=== PATIENT | male | born 2005 | race Caucasian/White ===

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

== ENCOUNTER 2025-01-16 13:03 | Outpatient (AMB) | payer OTHER, SELFPAY ==
--- OUTSIDE RECORDS SUMMARY | 2025-01-11 22:59 | XMS_ITS | Continuity of Care Document ---
Author Organization [facility] Address [address] [place] [address]- Care Team Providers Care Biomass Technician Name Role Phone Not on Staff, PCP Primary Care Physician Unavail able Encounter [facility] Date(s): 12/12/24 - 01/11/25 [facility] [address] [place] [id number] Attending Physician: Deanna Quiles Admitting Physician: AdmDeanna kay Referring Physician: Admtr ArThad Encounter Type: Triage Allergies, Adverse Reactions, Alerts No Known Allergies Immunizations Given and Recorded Vaccine Date Status Refusal Reason influenza virus vaccine, inactivated 04/26/24 Give n influenza virus vaccine, inactivated 01/28/22 Jeffery rded influenza virus vaccine, inactivated 12/24/20 Jeffery rded influenza virus vaccine, inactivated 03/12/20 Jeffery rded influenza virus vaccine, inactivated 03/24/18 Jeffery rded influenza virus vaccine, inactivated 05/13/16 Jeffery rded influenza virus vaccine, inactivated 12/07/14 Jeffery rded Meningococcal Conjugate Vaccine 12/24/20 Recorded Meningococcal Conjugate Vaccine 05/13/16 Recorded Human Papillomavirus Vaccine 05/13/16 Recorded tetanus/diphtheria/pertussis, acel(Tdap) 05/13/16 Recorded Medications clonazePAM 1 mg oral tablet, disintegrating 1 tablet = 1 mg, By Mouth, Once, PRN Seizure Activity, # 5 tablet, 5 Refills, Soft Stop, 09/18/24 1:49:00 PM EDT, [facility], Partial fill upon patient request if the prescription is for a schedule II opioid drug., 165, cm, 09/18/24 12:32:00 EDT, Height, 64.2, kg, 09/15/24 18:00:00 EDT,Dry Weight Start Date: 09/18/24 Status: Ordered Medication Dispense Status: Completed Quantity: 5.0 Unit: tablet Total Allowed Fills: 6 Fills Dispensed: 0 levETIRAcetam 1000 mg oral tablet 1 tablet = 1,000 mg, By Mouth, 2 times a day, # 60 tablet, 6 Refills, Maintenance, 01/01/25 10:06:00 AM EDT, Tablet, [facility]/pharmacy #[id number], Partial fill upon patient request if the prescription is for aschedule II opioid drug., 170, cm, 11/08/24 17:01:00 EDT, Height, 64.2, kg, 09/15/24 18:00:00 EDT, Dry Weight Start Date: 01/01/25 Stop Date: 07/30/25 Status: Ordered Medication Dispense Status: Completed Quantity: 60.0 Unit: tablet Total Allowed Fills: 7 Fills Dispensed: 0 pantoprazole 40 mg oral delayed release tablet = 40 mg, By Mouth, 2 times a day, # 60 tablet, 0 Refills, Maintenance, 09/18/24 1:50:00 PM EDT, EC Tablet, 165, cm, 09/18/24 12:32:00 EDT, Height, 64.2, kg, 09/15/24 18:00:00 EDT, Dry Weight Start Date: 09/18/24 Status: Ordered Medication Dispense Status: Completed Quantity: 60.0 Unit: tablet Total Allowed Fills: 1 Fills Dispensed: 0 Problem List Condition Confirmation Course Effective Dates Status Health St atus Informant ADHD Confirmed Active Easy bruising Confirmed Active Social History Social History Type Response Smoking Status Never (less than 100 in lifetime); Other: Reports smoking but not tobacco; entered on: 09/21/24 Sex Sex Representation Male (finding) Patient Care team information Care Team Personnel Name: Iwona Collins RN Position: Job RN Member Role: Primary Care Nurse Name: Juan Antonio Hartman RN Position: CATHYS RN Member Role: Primary Care Nurse Name: Yannick Doss MD Position: Job Renal MD Member Role: Lifetime Consulting Physician Address: [address] [place] [address] [address] [facility] [place], [place] [id number] Telecom: Name: Not on Staff, PCP Position: S Physician (General Medicine) Member Role: PCP Care Team Related Persons Name: CLEO MYERS Name: SONAL KAMARA Name: BENITA TOMAS Insurance Providers Guarantor name: MARGARET Health Plan Information #: 1 Payer: [employer] Payer Identifier: MARGARET Member Number: [id number] Group Number: [id number] Subscriber Identifier: MARGARET Relationship to Subscriber: self Coverage Type: NA Coverage Verification Date: NA Telecom: Address:
--- OUTSIDE RECORDS SUMMARY | 2025-01-11 22:59 | XMS_ITS | Continuity of Care Document ---
Author Organization [facility] Address [address] [place] [address]- Care Team Providers Care Rotary Furnace Operator Name Role Phone Not on Staff, PCP Primary Care Physician Unavail able Encounter [facility] Date(s): 09/18/24 - 01/11/[address] [address] Attending Physician: Valdez Kilpatrick MD Admitting Physician: Valdez Kilpatrick MD Encounter Type: Pre-OutPatient One Time Allergies, Adverse Reactions, Alerts No Known Allergies [...] Refills, Soft Stop, 09/18/24 1:49:00 PM EDT, [facility], Partial fill upon patient request if [...] Refills, Maintenance, 01/01/25 10:06:00 AM EDT, Tablet, [facility]/pharmacy #[id number], Partial fill upon patient request if [...] MD Member Role: Lifetime Consulting Physician Address: [address] [place] [address] [address] [facility] [address] Telecom: Name: Not on Staff, PCP Position: S Physician (General Medicine) Member Role: PCP Care Team Related Persons Name: CLEO MYERS Name: SONAL KAMARA Name: BENITA TOMAS Insurance Providers Guarantor name: MARGARET Health Plan Information #: 1 Payer: [employer] Payer Identifier: MARGARET Member Number: [id number] Group Number: [id number] Subscriber Identifier: MARGARET Relationship to Subscriber: self Coverage Type: NA Coverage Verification Date: NA Telecom: Address:
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
[2025-01-16 13:06] VITALS: BP 98/60; PULSE 91; RESP 18; TEMP 36; O2SAT 96; BMI 21.4
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
--- OUTSIDE RECORDS SUMMARY | 2025-01-16 15:51 | XMS_ITS | Encounter Summary ---
Author Organization [facility] Address [address] [place] [address] Phone Care Team Providers Care Data Analyst Report Writer Name Role Phone Mitch Borden MD Primary Care Provider [phone] Encounter Details Date Type Department Care Team (Late st Contact Info) Description 06/09/2016 Documentation [facility] [address] [place] [address] Family Medicine, Physician [address] [place], [place] [id number] Social History Tobacco Use Types Packs/Day Years Used Date Smoking Tobacco: Never Assessed Sex and Gender Information Value Date Recorded Sex Assigned at Male 10/18/2019 4:16 PM EDT Legal Sex Male 4:57 PM EDT Gender Identity Male 10/18/2019 4:16 PM EDT Sexual Orientation Straight 10/18/2019 4: 16 PM EDT documented as of this encounter Plan of Treatment Not on file documented as of this encounter Visit Diagnoses Not on filedocumented in this encounter Care Teams Data Analyst Report Writer Relationship Specialty Start Date End Date Mitch Borden MD [address] [place] [address] [place] [address] PCP - General Pediatrics 03/20/24 06/06/24 documented as of this encounter
--- OUTSIDE RECORDS SUMMARY | 2025-01-16 15:51 | XMS_ITS | Encounter Summary ---
Author Organization [facility] Address [address] [place] [address] Phone Care Team Providers Care Ambulance Driver Name Role Phone Mitch Borden MD Primary Care Provider [phone] Encounter Details Date Type Department Care Team (Late st Contact Info) Description 02/11/2012 Documentation [facility] [address] [place] [address] Family Medicine, Physician [address] [place], [place] [phone] Social History Tobacco Use Types Packs/Day Years [...] on filedocumented in this encounter Care Teams Ambulance Driver Relationship Specialty Start Date End Date Mitch Borden MD [address] [place] [address] [place] [address] PCP - General Pediatrics 03/20/24 06/06/24 documented as of this encounter
--- OUTSIDE RECORDS SUMMARY | 2025-01-16 15:51 | XMS_ITS | Encounter Summary ---
Author Organization [facility] Address [address] [place] [address] Phone Care Team Providers Care Histology Specialist Name Role Phone Mitch Borden MD Primary Care Provider [phone] Encounter Details Date Type Department Care Team (Late st Contact Info) Description 10/28/2016 Conversion Encounter [facility] [place] [address] [place] [address] Social History Tobacco Use Types Packs/Day Years [...] on filedocumented in this encounter Care Teams Histology Specialist Relationship Specialty Start Date End Date Mitch Borden MD [address] [place] [address] PCP - General Pediatrics 03/20/24 06/06/24 documented as of this encounter
--- OUTSIDE RECORDS SUMMARY | 2025-01-16 15:51 | XMS_ITS | Encounter Summary ---
Author Organization [facility] Address [address] [place] [address] Phone Care Team Providers Care Decorating Equipment Setter Name Role Phone Mitch Borden MD Primary Care Provider [phone] Encounter Details Date Type Department Care Team (Late st Contact Info) Description 08/08/2014 Documentation [facility] [address] [place] [address] Family Medicine, Physician [address] [place], [place] [phone] Social History Tobacco Use Types Packs/Day Years [...] on filedocumented in this encounter Care Teams Decorating Equipment Setter Relationship Specialty Start Date End Date Mitch Borden MD [address] [place] [address] [place] [address] PCP - General Pediatrics 03/20/24 06/06/24 documented as of this encounter
--- OUTSIDE RECORDS SUMMARY | 2025-01-16 15:51 | XMS_ITS | Encounter Summary ---
Author Organization [facility] Address [address] [place] [address] Phone Care Team Providers Care Education Teacher Name Role Phone Mitch Borden MD Primary Care Provider [phone] Encounter Details Date Type Department Care Team (Late st Contact Info) Description 06/23/2009 Documentation [facility] [address] [place] [address] Family Medicine, Physician [address] [place], [place] [phone] Social History Tobacco Use Types Packs/Day Years [...] on filedocumented in this encounter Care Teams Education Teacher Relationship Specialty Start Date End Date Mitch Borden MD [address] [place] [address] [place] [address] PCP - General Pediatrics 03/20/24 06/06/24 documented as of this encounter
== END 2025-01-16 14:27 | disposition home or self-care (01) ==
LOC: HO.HMCH 13:04
PROVIDERS: PCP Pediatrics
DX: Z23 Encounter for immunization (principal)

== ENCOUNTER → 2025-01-16 13:03 | Outpatient (BNVA) | payer OTHER, SELFPAY | PROVIDERS: PCP Pediatrics | DX: R56.9 Unspecified convulsions (principal); Z23 Encounter for immunization | CPT/HCPCS: 90471; 90472; 90656; 90715; 96127; 99202 ==

== ENCOUNTER 2025-02-04 13:19 | Outpatient (AMB) | payer OTHER, SELFPAY ==
--- NOTE | 2025-02-04 13:47 | MHC.PC.OV ---
Vital Signs 02/04/25 13:48 Height 5 ft 7 in Weight 142 lb 6 oz BMI 22.3 BP 104/58 L Blood Pressure Location Lt brachial Position Sitting Respiration 18 Pulse 86 Pulse Source Pulse Oximeter Temp 97.8 F Temp Source Oral Pulse Oximetry (%) 97 Oxygen Delivery Method Room Air Intake Visit Reasons: follow up seziures Grief Counsellor Required: No Accompanied by: Allergies No Known Allergies Allergy (Verified 02/04/25 14:36) Medication List - Last Reconciled 02/04/25 by VIRGINIA Flores levetiracetam (Keppra) 1,500 mg PO BID Tobacco use date assessed: 02/04/25 Dental Screening Dental Screen Date: 02/04/25 Did you have a dental visit in the last 12 months?: Yes Did you have a dental problem in the last 6 months where you did not have access to dental care?: No Was dental information given to patient?: Patient has dentist HPI follow up seziures HPI Details The patient is a 19 year old individual presenting for follow-up on seizure management. The patient has a history of seizures with increasing frequency; seizures occurred in April, September, October, December, and most recently in January. Prior to the most recent seizure, the patient reported feeling unwell, vomited, and laid down. The patient reports experiencing an aura or specific feelings before a seizure occurs. The patient was not started on medication after the first seizure but was prescribed medication after the third seizure. The patient's Keppra dosage was 750 mg, which was increased to 1,000 mg in October and increased again after the seizure in January. During a recent hospitalization for a seizure, the patient had blood work and a cardiac evaluation, though it is unknown if a Keppra level was checked. The patient was prescribed clonazepam 1 mg to be taken at the onset of pre-seizure symptoms to prevent a full seizure, by the ER doctor. The patient reports smoking two to three marijuana blunts per day, a reduction from a prior history of smoking five to six blunts daily. The patient does not drink alcohol. Regarding hydration, the patient acknowledges needing to drink more water. The patient has a history of low-normal blood pressure, with a reading of 98/60 last year. [facility] Medical History Seizure Family History Unknown Seizure Maternal Grandmother Diabetes mellitus Maternal Uncle Diabetes mellitus Learning disability Mother Learning disability Maternal Aunt Leukemia Social History Alcohol intake: never Patient Tobacco Use Status: Never used Tobacco e-Cigarette/Vaping Use: Never Used Substance Use Type: Marijuana Current occupational status: unemployed Cognitive needs: No Hearing needs: No Vision needs: No Questionnaire PHQ-9 Over the last 2 weeks, how often have you been bothered by any of the following problems? 1. Little interest or pleasure in doing things: not at all 2. Feeling down, depressed, or hopeless: not at all 3. Trouble falling or staying asleep, or sleeping too much: not at all 4. Feeling tired or having little energy: not at all 5. Poor appetite or overeating: not at all 6. Feeling bad about yourself - or that you are a failure or have let yourself or your family down: not at all 7. Trouble concentrating on things, such as reading the newspaper or watching television: not at all 8. Moving or speaking so slowly that other people could have noticed. Or the opposite - being so fidgety or restless that you have been moving around a lot more than usual: not at all 9. Thoughts that you would be better off or of hurting yourself in some way: not at all Total score: 0 Source: Developed by Drs. Coy Chavez, Flora Bowers, Caio Gaston and colleagues, with an educational melissa from [employer]. Thrive Questionnaire Date Thrive assessed: 02/04/25 I am a: Patient What is your living situation today?: I have a steady place to live Within the past 12 months, did the food you bought not last and you didn't have the money to get more?: Never true Within the past 12 months, did you worry whether your food would run out before you got money to buy more?: Never true Do you have trouble paying for medicines?: No Do you have trouble getting transportation to medical appointments?: No Do you have trouble paying your heating and electricity bill?: No Do you have trouble taking care of your child, family member or friend?: No Do you have trouble with day-to-day activities such as bathing, preparing meals, shopping, managing finances, etc.?: No Are you currently unemployed and looking for a job?: No Are you interested in more education?: No Please select the resources that you would like help with: None Currently or been in a relationship where the following occur: No concerns reported THRIVE Score: 0 AUDIT C Alcohol Use Questionnaire (AUDIT-C) 1. How often do you have a drink containing alcohol?: Never 2. How many drinks containing alcohol do you have on a typical day when you are drinking?: 1 or 2 3. How often do you have six or more drinks on one occasion?: Never Total Score: 0 RYDER-7 AMB Questionnaire RYDER-7 Date RYDER - 7 assessed: 02/04/25 Feeling nervous, anxious, or on edge: 0 = Not at all Not being able to stop or control worryin = Not at all Worrying too much about different things: 0 = Not at all Trouble relaxin = Not at all Being so restless that it is hard to sit still: 0 = Not at all Becoming easily annoyed or irritable: 0 = Not at all Feeling afraid as if something awful might happen: 0 = Not at all Total RYDER-7 score (0-4 normal; 5-9 mild; 10-14 moderate; 15-21 severe): 0 Source: Developed by Drs. Coy Chavez, Flora Bowers, Caio Gaston and colleagues, with an educational melissa from [employer]. Review of Systems Const Denies headache(s) Eyes Denies loss of vision ENT Denies vertigo, Denies dizziness, Denies headache(s) and Denies sore throat Card Denies chest pain, Denies leg edema and Denies lightheadedness Resp Denies cough, Denies hemoptysis and Denies wheezing GI Denies abdominal pain, Denies melena, Denies constipation, Denies diarrhea and Denies vomiting Denies dysuria, Denies urinary frequency and Denies urinary urgency Musc Denies arthralgias, Denies joint swelling, Denies numbness and Denies tingling Neuro Denies Abnormal speech present, Denies behavioral changes, Denies vertigo, Denies dizziness, Denies headache(s), Denies loss of vision, Denies memory loss, Denies numbness, Reports seizure-like activity and Denies tingling Psych Denies anxiety, Denies behavioral changes, Denies depression, Denies memory loss and Denies panic attacks Ronan/Lymph Denies easy bleeding and Denies easy bruising Aller/Immun Denies wheezing Physical exam (Primary Care) Vital Signs: Last Vital Signs Temp 97.8 F 02/04/25 13:48 Pulse 86 02/04/25 13:48 Resp 18 02/04/25 13:48 BP 104/58 L 02/04/25 13:48 Pulse Ox 97 02/04/25 13:48 Oxygen Delivery Method Room Air 02/04/25 13:48 BMI result Body Mass Index 22.3 Tobacco/Smoking Status: Tobacco use Status Tobacco use date assessed 02/04/25 02/04/25 13:54 Patient Tobacco Use Status Never used Tobacco 02/04/25 13:54 e-Cigarette/Vaping Use Never Used 02/04/25 13:54 PHQ-9: PHQ-9 Score PHQ-9: Total score 0 02/05/25 14:57 Thrive Assessment: Date of Thrive Assessment Date Thrive assessed 02/04/25 02/04/25 13:54 Currently or been in a relationship where the following occur: No concerns reported Const General: healthy appearing, no acute distress, alert and awake Nutritional Appearance: well nourished Orientation/consciousness: oriented to person, oriented to place and oriented to time HENMT Ears: TM's normal bilaterally General nose exam: Normal nasal mucous membranes and turbinates present Eyes Conjunctivae: conjunctivae normal Sclerae: sclerae normal Pupils: Equal, round and reactive pupils present Neck Neck: Yes no lymphadenopathy and Yes no JVD Thyroid: Thyroid normal Carotids: no bruits Resp Effort & Inspection: normal respiratory effort and not tachypneic Auscultation: no crackles, no rales, no rhonchi and no wheezes Cardio Rate: regular rate Rhythm: regular rhythm Heart sounds: no murmurs and normal S1 and S2 GI Palpation (GI): Soft to palpation, nontender, no hepatomegaly and no splenomegaly Auscultation: normal bowel sounds Skin General skin exam: no rashes or lesions noted and dry skin Neuro General: oriented to person, oriented to place and oriented to time Cranial nerves: Yes CN's II-XII intact bilaterally and Yes Equal, round and reactive pupils present Speech: No Abnormal speech present Gait exam (Neuro): Normal gait present Motor exam (neuro): no tremor noted Extrem Right upper extremity: full ROM Left upper extremity: full ROM Right lower extremity: full ROM; no edema Left lower extremity: full ROM; no edema Psych Mental Status: mental status grossly normal Speech and movement: Normal speech and movement present Affect: normal affect Attitude: cooperative Thought process: Normal thought process present Coding Level of Care Code Est Pt Level 3 (80144) Diagnoses Seizure R56.9 Marijuana use F12.90 Time Spent (min) 29 Assessment & Plan Assessment & Plan (1) Seizure: Code(s): R56.9 - Unspecified convulsions Category: Medical Plan: The patient presents with breakthrough seizures of increasing frequency despite titration of Keppra. Potential contributing factors include subtherapeutic Keppra levels, cannabis use, and inadequate hydration. The plan is to check a Keppra level to guide further medication management. The patient has been counseled to reduce marijuana use and increase water intake. The patient will continue to use clonazepam as needed for pre-seizure symptoms. The patient will follow up with neurology on March 18 and return to this clinic on March 11. (2) Marijuana use: Code(s): F12.90 - Cannabis use, unspecified, uncomplicated Category: Social Hx Plan: The patient reports daily use of marijuana, which may be a contributing factor to the increased seizure frequency. The patient was counseled on the potential link and advised to be mindful of consumption and begin cutting back. Orders: Orders Levetiracetam Keppra 02/04/25 R56.9 - Unspecified convulsions
[2025-02-04 13:48] VITALS: BP 104/58; PULSE 86; RESP 18; TEMP 36.6; O2SAT 97; BMI 22.3
--- OUTSIDE RECORDS SUMMARY | 2025-02-04 17:58 | XMS_ITS | Encounter Summary ---
Author Organization [facility] Address [address] [place] [address] Phone Care Team Providers Care Training And Development Manager Name Role Phone Mitch Borden MD Primary Care Provider [phone] Encounter Details Date Type Department Care Team (Late st Contact Info) Description 10/28/2016 Conversion Encounter [facility] [place] [address] [place] [address] Social History Tobacco Use Types Packs/Day Years [...] on filedocumented in this encounter Care Teams Training And Development Manager Relationship Specialty Start Date End Date Mitch Borden MD [address] [place] [address] PCP - General Pediatrics 03/20/24 06/06/24 documented as of this encounter
--- OUTSIDE RECORDS SUMMARY | 2025-02-04 17:58 | XMS_ITS | Encounter Summary ---
Author Organization [facility] Address [address] [place] [address] Phone Care Team Providers Care Registered Nurse Cardiac Telemetry Name Role Phone Mitch Borden MD Primary Care Provider [phone] Encounter Details Date Type Department Care Team (Late st Contact Info) Description 08/08/2014 Documentation [facility] [address] [place] [address] Family Medicine, Physician [address] [place], [place] [address] Social History Tobacco Use Types Packs/Day Years [...] on filedocumented in this encounter Care Teams Registered Nurse Cardiac Telemetry Relationship Specialty Start Date End Date Mitch Borden MD [address] [place] [address] [place] [address] PCP - General Pediatrics 03/20/24 06/06/24 documented as of this encounter
--- OUTSIDE RECORDS SUMMARY | 2025-02-04 17:58 | XMS_ITS | Encounter Summary ---
Author Organization [facility] Address [address] [place] [address] Phone Care Team Providers Care Supervisor Continuous Weld Pipe Mill Name Role Phone Mitch Borden MD Primary Care Provider Encounter Details Date Type Department Care Team (Late st Contact Info) Description 02/11/2012 Documentation [facility] [address] [place] [address] Family Medicine, Physician [address] [place], [place] [phone] Social History Tobacco Use Types Packs/Day Years [...] on filedocumented in this encounter Care Teams Supervisor Continuous Weld Pipe Mill Relationship Specialty Start Date End Date Mitch Borden MD [address] [place] [address] [place] [address] PCP - General Pediatrics 03/20/24 06/06/24 documented as of this encounter
--- OUTSIDE RECORDS SUMMARY | 2025-02-04 17:58 | XMS_ITS | Encounter Summary ---
Author Organization [facility] Address [address] [place] [address] Phone Care Team Providers Care Intelligent Systems Engineer Name Role Phone Mitch Borden MD Primary Care Provider [phone] Encounter Details Date Type Department Care Team (Late st Contact Info) Description 06/09/2016 Documentation [facility] [address] [place] [address] Family Medicine, Physician [address] [place], [place] [id number] Social History Tobacco Use Types Packs/Day Years [...] on filedocumented in this encounter Care Teams Intelligent Systems Engineer Relationship Specialty Start Date End Date Mitch Borden MD [address] [place] [address] [place] [address] PCP - General Pediatrics 03/20/24 06/06/24 documented as of this encounter
--- OUTSIDE RECORDS SUMMARY | 2025-02-04 17:58 | XMS_ITS | Encounter Summary ---
Author Organization [facility] Address [address] [place] [address] Phone Care Team Providers Care Project Accountant Name Role Phone Mitch Borden MD Primary Care Provider [phone] Encounter Details Date Type Department Care Team (Late st Contact Info) Description 06/23/2009 Documentation [facility] [address] [place] [address] Family Medicine, Physician [address] [place], [place] [phone] Social History Tobacco Use Types Packs/Day Years [...] on filedocumented in this encounter Care Teams Project Accountant Relationship Specialty Start Date End Date Mitch Borden MD [address] [place] [address] [place] [address] PCP - General Pediatrics 03/20/24 06/06/24 documented as of this encounter
--- OUTSIDE RECORDS SUMMARY | 2025-02-04 17:58 | XMS_ITS | Clinical Summary ---
Author Organization [facility] Address [address] [place] [address] Phone Care Team Providers Care Automotive Glass Technician Name Role Phone Unavailable Primary Care Provider Unavailabl e Allergies No known active allergies Medications No known medications Active Problems Problem Noted Date Diagnosed Date COVID-19 vaccination declined 02/03/2021 Psychosocial stressors 08/07/2020 Overview (01/26/2021): 02/01-- here with Mom for preop PE for ganglion (11:30 am) - strong smell of marijuana in room, which I mentioned. 08/07/20 Haven Charlton police investigator at [facility] office- [phone] calling on an active 51 A (she stated the 51 A was filed on Gigi's 17 year old sister and her two minor children. But [facility] is mandated to investigate on all [...] (10/18/2019): Has therapist coming to home from [facility]. On on meds at present. Immunizations Immunization [...]
== END 2025-02-04 14:58 | disposition home or self-care (01) ==
LOC: HO.HMCH 13:20
DX: R56.9 Unspecified convulsions (principal); F12.90 Cannabis use, unspecified, uncomplicated

== ENCOUNTER → 2025-02-04 13:19 | Outpatient (BNVA) | payer OTHER, SELFPAY | DX: R56.9 Unspecified convulsions (principal); F12.90 Cannabis use, unspecified, uncomplicated; Z79.899 Other long term (current) drug therapy | CPT/HCPCS: 99212 ==

== ENCOUNTER 2025-03-01 11:23 | Outpatient (REF) | payer OTHER, SELFPAY ==
[2025-03-01 11:37] LABS: MANUAL DIFF FLAG NO
[2025-03-01 11:46] LABS: Hematocrit 45.1 % (42.0-52.0); Hemoglobin 15.2 g/dl (14.0-18.0); Imm Gran Abs Auto 0.02 X10*3/uL (0.00-0.03); Imm Gran Pct Auto 0.2 % (0.0-0.4); Lymphocytes Absolute Auto 2.2 X10*3/uL (1.2-4.9); Mean Corpuscular HGB Conc 33.7 g/dl (31.0-36.0); Mean Corpuscular Hemoglobin 30.1 pg (27.0-33.0); Mean Corpuscular Volume 89.3 fL (80.0-98.0); NRBC Abs Auto 0.000 X10*3/uL (0.0-0.012); NRBC Pct Auto 0.0 /100WBC (0.0-0.2); Platelet Count 214 X10*3/uL (160-400); Red Blood Count 5.05 X10*6/uL (4.60-5.80); White Blood Count 8.5 X10*3/uL (4.8-10.8)
[2025-03-01 12:21] LABS: Alanine Aminotransferase 26 U/L (0-40); Albumin Level 4.6 g/dL (3.5-5.0); Alkaline Phosphatase 74 U/L (39-117); Anion Gap 9 (12-20); Aspartate Amino Transferase 26 U/L (5-37); Blood Urea Nitrogen 9 mg/dL (9-16); Calcium 9.4 mg/dL (8.4-10.2); Carbon Dioxide 27 mmol/L (22-29); Chloride 107 mmol/L (96-108); Cholesterol 164 mg/dL (<200); Estimated Glomerular Filt Rate > 60; HDL Cholesterol 43 mg/dL (>40); Potassium 4.0 mmol/L (3.3-5.1); Sodium 139 mmol/L (135-145); Total Protein 6.6 g/dL (6.5-8.0); Triglycerides 82 mg/dL (<150)
--- OUTSIDE RECORDS SUMMARY | 2025-03-01 13:27 | XMS_ITS | Encounter Summary ---
Author Organization [facility] Address [address] [place] [address] Phone Care Team Providers Care Auto Body Mechanic Name Role Phone Mitch Borden MD Primary Care Provider [phone] Encounter Details Date Type Department Care Team (Late st Contact Info) Description 10/28/2016 Conversion Encounter [facility] [place] [address] [place] [address] Social History Tobacco Use Types Packs/Day Years [...] on filedocumented in this encounter Care Teams Auto Body Mechanic Relationship Specialty Start Date End Date Mitch Borden MD [address] [place] [address] PCP - General Pediatrics 03/20/24 06/06/24 documented as of this encounter
--- OUTSIDE RECORDS SUMMARY | 2025-03-01 13:27 | XMS_ITS | Encounter Summary ---
Author Organization [facility] Address [address] [place] [address] Phone Care Team Providers Care Teletype Technician Name Role Phone Mitch Borden MD Primary Care Provider [phone] Encounter Details Date Type Department Care Team (Late st Contact Info) Description 06/23/2009 Documentation [facility] [address] [place] [address] Family Medicine, Physician [address] [place], [place] [phone] Social History Tobacco Use Types Packs/Day Years [...] on filedocumented in this encounter Care Teams Teletype Technician Relationship Specialty Start Date End Date Mitch Borden MD [address] [place] [address] [place] [address] PCP - General Pediatrics 03/20/24 06/06/24 documented as of this encounter
--- OUTSIDE RECORDS SUMMARY | 2025-03-01 13:27 | XMS_ITS | Clinical Summary ---
Author Organization [facility] Address [address] [place] [address] Phone Care Team Providers Care Segregator Name Role Phone Unavailable Primary Care Provider Unavailabl e Allergies No known active allergies Medications No known medications Active Problems Problem Noted Date Diagnosed Date COVID-19 vaccination declined 02/03/2021 Psychosocial stressors 08/07/2020 Overview (01/26/2021): 02/01-- here with Mom for preop PE for ganglion (11:30 am) - strong smell of marijuana in room, which I mentioned. 08/07/20 Haven Charlton radio interference investigator at [facility] office- [phone] calling on an active 51 A (she stated the 51 A was filed on Gigi's 17 year old sister and her two minor children. But [facility] is mandated to investigate on all [...] (10/18/2019): Has therapist coming to home from [facility]. On on meds at present. Encounters Date Type Department Care Team Description 02/11/2025 Telephone [facility] [place] [address] [place] [address] Lu Feng MD medical records from Last 3 Months Immunizations Immunization Administration Dates Next Due DTaP [...]
--- OUTSIDE RECORDS SUMMARY | 2025-03-01 13:27 | XMS_ITS | Encounter Summary ---
Author Organization [facility] Address [address] [place] [address] Phone Care Team Providers Care Hog Cooler Name Role Phone Mitch Borden MD Primary Care Provider Encounter Details Date Type Department Care Team (Late st Contact Info) Description 06/09/2016 Documentation [facility] Family Medicine [address] [place] [address] Family Medicine, Physician [address] [place], [place] [phone] Social History Tobacco Use Types Packs/Day Years [...] on filedocumented in this encounter Care Teams Hog Cooler Relationship Specialty Start Date End Date Mithc Borden MD [address] [place] [address] [place] [address] PCP - General Pediatrics 03/20/24 06/06/24 documented as of this encounter
--- OUTSIDE RECORDS SUMMARY | 2025-03-01 13:27 | XMS_ITS | Encounter Summary ---
Author Organization [facility] Address [address] [place] [address] Phone Care Team Providers Care Asphalt Smoother Name Role Phone Mitch Borden MD Primary Care Provider [phone] Encounter Details Date Type Department Care Team (Late st Contact Info) Description 02/11/2012 Documentation [facility] [address] [place] [address] Family Medicine, Physician [address] [place], [place] [phone] Social History Tobacco Use Types Packs/Day Years [...] on filedocumented in this encounter Care Teams Asphalt Smoother Relationship Specialty Start Date End Date Mitch Borden MD [address] [place] [address] [place] [address] PCP - General Pediatrics 03/20/24 06/06/24 documented as of this encounter
--- OUTSIDE RECORDS SUMMARY | 2025-03-01 13:27 | XMS_ITS | Encounter Summary ---
Author Organization [facility] Address [address] [place] [address] Phone Care Team Providers Care Paper Cup Machine Operator Name Role Phone Mitch Borden MD Primary Care Provider [phone] Encounter Details Date Type Department Care Team (Late st Contact Info) Description 08/08/2014 Documentation [facility] [address] [place] [address] Family Medicine, Physician [address] [place], [place] [id number] Social History Tobacco Use Types Packs/Day Years [...] on filedocumented in this encounter Care Teams Paper Cup Machine Operator Relationship Specialty Start Date End Date Mitch Borden MD [address] [place] [address] [place] [address] PCP - General Pediatrics 03/20/24 06/06/24 documented as of this encounter
[2025-03-03 23:56] LABS: Levetiracetam Keppra 69.3 mcg/mL (10.0-40.0)
== END 2025-03-01 11:24 | disposition home or self-care (01) ==
LOC: HO.LAB 11:23
DX: Z00.00 Encounter for general adult medical examination without abnormal findings (principal); R56.9 Unspecified convulsions
CPT/HCPCS: 36415; 80053; 80061; 80177; 82306; 83036; 84443; 85025

== ENCOUNTER 2025-03-11 11:29 | Outpatient (AMB) | payer OTHER, SELFPAY ==
--- NOTE | 2025-03-11 11:39 | MHC.PC.OV ---
Vital Signs 03/11/25 11:41 Height 5 ft 7 in Weight 145 lb 8 oz BMI 22.8 BP 110/62 Blood Pressure Location Lt brachial Position Sitting Pulse 70 Pulse Source Pulse Oximeter Temp 97.3 F Temp Source Temporal Artery Scan Pulse Oximetry (%) 97 Oxygen Delivery Method Room Air Intake Visit Reasons: annual exam Intake Note: Patient is here today for a physical. Bioengineer Required: No Substation Operator Transforming: Not Required per policy Accompanied by: Self / Same As Patient Allergies No Known Allergies Allergy (Verified 03/12/25 08:12) Medication List - Last Reconciled 03/12/25 by VIRGINIA Flores cholecalciferol (vitamin D3) 50 mcg PO DAILY ibuprofen 800 mg PO Q8H PRN levetiracetam (Keppra) 1,500 mg (1.5 x 1,000 mg) PO BID 90 days Tobacco use date assessed: 03/11/25 Dental Screening Dental Screen Date: 02/04/25 HPI annual exam HPI Details Dentist: up to date Eye: not for awhile Snellen: Right: Left: Corrected vision:no STI screening: Colonoscopy:n/a Pap Smer:n/a PHQ-9: Flu: Up-to-date COVID: Up-to-date Tdap: Up-to-date Diet: Regular Exercise: That at the moment The patient is a 19 year old male presenting for a follow-up visit to review lab results, manage chronic conditions, and to obtain medical documentation for disability. 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 He takes 1500 mg of an unspecified medication for his seizures, and his medication level is being monitored. The patient also reports chronic right knee pain following a prior ACL tear. The pain is typically worse during the winter but has been particularly severe lately, sometimes causing him to want to curl up. A follow-up x-ray performed around [id number] was reportedly normal, and he has surgical hardware in place from a previous procedure. Recent blood work revealed a slightly elevated LDL cholesterol of 105 and low vitamin D. His diet includes fried foods, pork, red meat, egg yolks, and shellfish. He reports being sensitive to dairy products, including lactose-free milk. Health Maintenance - Cholesterol management: Recent LDL was 105. - The patient was counseled to reduce dietary intake of fried foods, pork, red meat, and egg yolks. - Vitamin D deficiency: Lab results indicated a low vitamin D level. - Vaccinations: A discussion was held regarding his immunization status for influenza and tetanus. - General screenings: The patient confirms he has had a dental and eye exam within the past year. - Hydration: The patient reports drinking two bottles of water a day and was encouraged to increase his fluid intake. 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 - Nutrition: His diet includes fried foods, pork, red meat, egg yolks, and shellfish. - He reports drinking approximately two bottles of water per day. Results - Labs: - LDL Cholesterol: 105. - Vitamin D: Low. - Anticonvulsant level: High. - Imaging: - Right Knee X-ray (c. [id number]): Reportedly normal on visual inspection. [facility] Medical History (Updated 03/12/25 @ 08:27 by VIRGINIA Flores) Seizure Surgical History History of dental surgery Family History Unknown Seizure Maternal Grandmother Diabetes mellitus Maternal Uncle Diabetes mellitus Learning disability Mother Learning disability Maternal Aunt Leukemia Social History Housing: Apartment Alcohol intake: never Patient Tobacco Use Status: Never used Tobacco e-Cigarette/Vaping Use: Never Used Second Hand Smoke Exposure: No Substance Use Type: Marijuana service: No Current occupational status: unemployed Cognitive needs: No Hearing needs: No Vision needs: No Questionnaire Thrive Questionnaire Date Thrive assessed: 02/02/25 I am a: Patient What is your living situation today?: I have a steady place to live Within the past 12 months, did the food you bought not last and you didn't have the money to get more?: Never true Within the past 12 months, did you worry whether your food would run out before you got money to buy more?: Never true Do you have trouble paying for medicines?: No Do you have trouble getting transportation to medical appointments?: No Do you have trouble paying your heating and electricity bill?: No Do you have trouble taking care of your child, family member or friend?: No Do you have trouble with day-to-day activities such as bathing, preparing meals, shopping, managing finances, etc.?: No Are you currently unemployed and looking for a job?: No Are you interested in more education?: No Currently or been in a relationship where the following occur: No concerns reported THRIVE Score: 0 RYDER-7 AMB Questionnaire RYDER-7 Date RYDER - 7 assessed: 02/04/25 Source: Developed by Drs. Coy Cahvez, Flora Bowers, Caio Gaston and colleagues, with an educational melissa from [employer]. Review of Systems Narrative Review of Systems - Neurological: Reports a history of seizures and headaches. - Musculoskeletal: Reports severe, worsening pain in the right knee, which is exacerbated by cold weather. - Gastrointestinal: Reports sensitivity to milk products. - Denies abdominal pain. - Cardiovascular: Denies chest pain. - Respiratory: Denies shortness of breath. Const Denies headache(s) Eyes Denies loss of vision ENT Denies vertigo, Denies dizziness, Denies headache(s) and Denies sore throat Card Denies chest pain, Denies leg edema and Denies lightheadedness Resp Denies cough, Denies hemoptysis and Denies wheezing GI Denies abdominal pain, Denies melena, Denies constipation, Denies diarrhea and Denies vomiting Denies dysuria, Denies urinary frequency and Denies urinary urgency Musc Reports arthralgias (Right knee), Denies joint swelling, Denies numbness and Denies tingling Neuro Denies Abnormal speech present, Denies behavioral changes, Denies vertigo, Denies dizziness, Denies headache(s), Denies loss of vision, Denies memory loss, Denies numbness, Reports seizure-like activity and Denies tingling Psych Denies anxiety, Denies behavioral changes, Denies depression, Denies memory loss and Denies panic attacks Ronan/Lymph Denies easy bleeding and Denies easy bruising Aller/Immun Denies wheezing Physical exam (Primary Care) Vital Signs: Last Vital Signs Temp 97.3 F 03/11/25 11:41 Pulse 70 03/11/25 11:41 BP 110/62 03/11/25 11:41 Pulse Ox 97 03/11/25 11:41 Oxygen Delivery Method Room Air 03/11/25 11:41 BMI result Body Mass Index 22.8 Tobacco/Smoking Status: Tobacco use Status Tobacco use date assessed 03/11/25 03/11/25 11:46 Patient Tobacco Use Status Never used Tobacco 03/11/25 11:46 e-Cigarette/Vaping Use Never Used 03/11/25 11:46 Thrive Assessment: Date of Thrive Assessment Date Thrive assessed 02/02/25 03/11/25 11:46 Currently or been in a relationship where the following occur: No concerns reported Narrative Physical Exam Const General: healthy appearing, no acute distress, alert and awake Nutritional Appearance: well nourished Orientation/consciousness: oriented to person, oriented to place and oriented to time HENMT Ears: TM's normal bilaterally General nose exam: Normal nasal mucous membranes and turbinates present Eyes Conjunctivae: conjunctivae normal Sclerae: sclerae normal Pupils: Equal, round and reactive pupils present Neck Neck: Yes no lymphadenopathy and Yes no JVD Thyroid: Thyroid normal Carotids: no bruits Resp Effort & Inspection: normal respiratory effort and not tachypneic Auscultation: no crackles, no rales, no rhonchi and no wheezes Cardio Rate: regular rate Rhythm: regular rhythm Heart sounds: no murmurs and normal S1 and S2 GI Palpation (GI): Soft to palpation, nontender, no hepatomegaly and no splenomegaly Auscultation: normal bowel sounds General: Yes no CVA tenderness Back/Spine/Pelvis Back: no CVA tenderness Skin General skin exam: no rashes or lesions noted and dry skin Neuro General: oriented to person, oriented to place and oriented to time Cranial nerves: Yes CN's II-XII intact bilaterally and Yes Equal, round and reactive pupils present Speech: No Abnormal speech present Gait exam (Neuro): Normal gait present Motor exam (neuro): no tremor noted Deep tendon reflexes (DTR's): Right triceps reflex intensity grade: 2+, Left triceps reflex intensity grade: 2+, Rt Biceps (C5, C6): 2+, Left biceps reflex intensity grade: 2+, Right brachioradialis reflex intensity grade: 2+, Left brachioradialis reflex intensity grade: 2+, Right patellar reflex intensity grade: 2+ and Left patellar reflex intensity grade: 2+ Extrem Right upper extremity: full ROM Left upper extremity: full ROM Right lower extremity: full ROM and knee Details: no tenderness and no swelling; no edema Left lower extremity: full ROM; no edema Psych Mental Status: mental status grossly normal Speech and movement: Normal speech and movement present Affect: normal affect Attitude: cooperative Thought process: Normal thought process present Results Reviewed Results Reviewed: Laboratory Tests 03/01/25 11:36 WBC 8.5 RBC 5.05 Hgb 15.2 Hct 45.1 MCV 89.3 MCH 30.1 MCHC 33.7 RDW 12.3 Plt Count 214 Sodium 139 Potassium 4.0 Chloride 107 Carbon Dioxide 27 Anion Gap 9 L BUN 9 Creatinine 0.98 Estim Creat Clear Calc Not Reportable Estimated GFR > 60 Fasting Glucose 92 Estimat Average Glucose 105 Hemoglobin A1c % 5.3 Calcium 9.4 Total Bilirubin 0.8 AST 26 ALT 26 Alkaline Phosphatase 74 Total Protein 6.6 Albumin 4.6 Triglycerides 82 Cholesterol 164 LDL Cholesterol, Calc 105 H HDL Cholesterol 43 25-OH Vitamin D Total 21.8 L TSH 0.82 Levetiracetam 69.3 H Coding Level of Care Code Est Pt Prev Care 18-39y([id number]) Diagnoses Annual physical exam Z00.00 Seizure R56.9 Marijuana use F12.90 Vitamin D deficiency E55.9 Chronic pain of right knee M25.561; G89.29 Chronicity: chronic Time Spent (min) 35 Assessment & Plan Assessment & Plan (1) Annual physical exam: Code(s): Z00.00 - Encounter for general adult medical examination without abnormal findings Category: Medical Plan: Preventative guidelines and recent labs reviewed with the patient (2) Seizure: Code(s): R56.9 - Unspecified convulsions Category: Medical Plan: The patient presents with breakthrough seizures of increasing frequency despite titration of Keppra. Potential contributing factors include subtherapeutic Keppra levels, cannabis use, and inadequate hydration. The plan is to check a Keppra level to guide further medication management. The patient has been counseled to reduce marijuana use and increase water intake. The patient will continue to use clonazepam as needed for pre-seizure symptoms. The patient will follow up with neurology on March 18. Patient in office today no recent seizures. Keppra levels slightly elevated. No changes, we will continue to monitor (3) Marijuana use: Code(s): F12.90 - Cannabis use, unspecified, uncomplicated Category: Social Hx Plan: The patient reports daily use of marijuana, which may be a contributing factor to the increased seizure frequency. The patient was counseled on the potential link and advised to be mindful of consumption and begin cutting back. (4) Vitamin D deficiency: Code(s): E55.9 - Vitamin D deficiency, unspecified Category: Medical Plan: Start vitamin D3 50 mcg daily (5) Right knee pain: Code(s): M25.561 - Pain in right knee Category: Medical Qualifiers: Chronicity: chronic Qualified Code(s): M25.561 - Pain in right knee; G89.29 - Other chronic pain Plan: The patient's worsening right knee pain is likely related to his prior ACL injury and surgical hardware. He has been prescribed ibuprofen 800 mg to be taken as needed for severe pain. He was counseled to take it with food and to use it sparingly to avoid potential kidney damage Plan Plan Patient was informed and verbally consented to the use of an ambient scribe for clinic note documentation during this visit. 1. Seizure Disorder The patient's seizures are managed with medication, and his anticonvulsant level is noted to be in the high-therapeutic range, which will be monitored to prevent seizure activity. A letter will be provided to support his application for medical disability. He is advised to follow up in three months for continued monitoring. 2. Chronic Right Knee Pain The patient's worsening right knee pain is likely related to his prior ACL injury and surgical hardware. He has been prescribed ibuprofen 800 mg to be taken as needed for severe pain. He was counseled to take it with food and to use it sparingly to avoid potential kidney damage. 3. Hypercholesterolemia The patient's LDL cholesterol is slightly elevated at 105. He was advised on dietary modifications, including decreasing the intake of fried foods, pork, red meat, and egg yolks. 4. Vitamin D Deficiency Based on recent lab results showing a low vitamin D level, the patient was advised to begin taking a daily vitamin D supplement. Discussion Notes I reviewed the patient's recent lab results with him, noting the slightly elevated LDL cholesterol of 105 and low vitamin D. We discussed dietary changes to manage cholesterol and the recommendation to start a daily vitamin D supplement. I addressed his chief complaint of worsening right knee pain and prescribed ibuprofen 800 mg for PRN use, with clear instructions on safe usage to mitigate risks to his kidneys. We also discussed his seizure disorder, the status of his anticonvulsant levels, and I agreed to write a letter to support his medical disability claim. The patient was instructed to increase his daily water intake and to return for a follow-up appointment in three months to monitor his chronic conditions. Patient Instructions - Start taking a vitamin D supplement every day. - To help lower your cholesterol, try to eat less fried food, pork, red meat, and egg yolks. - You have been prescribed Ibuprofen 800 mg for your knee pain. - Take it only when the pain is very bad and always with food. - Do not take it too often as it can cause problems with your kidneys. - Drink more water throughout the day. - I will write the letter you need for your disability paperwork. 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 - Please schedule a follow-up appointment in three months. Orders: Orders Comprehensive [place]. Panel Fast 3 Months E55.9 - Vitamin D deficiency, unspecified, F12.90 - Cannabis use, unspecified, uncomplicated, R56.9 - Unspecified convulsions UA CC w/rflx Micro + Cult 3 Months E55.9 - Vitamin D deficiency, unspecified, F12.90 - Cannabis use, unspecified, uncomplicated, R56.9 - Unspecified convulsions Levetiracetam Keppra 3 Months E55.9 - Vitamin D deficiency, unspecified, F12.90 - Cannabis use, unspecified, uncomplicated, R56.9 - Unspecified convulsions Vitamin D 25-OH Total 3 Months E55.9 - Vitamin D deficiency, unspecified TSH reflex Free T4 3 Months E55.9 - Vitamin D deficiency, unspecified, F12.90 - Cannabis use, unspecified, uncomplicated, R56.9 - Unspecified convulsions Medications: New cholecalciferol (vitamin D3) 50 mcg PO DAILY 90 caps 3RF ibuprofen 800 mg PO Q8H PRN 30 tabs 0RF pain
[2025-03-11 11:41] VITALS: BP 110/62; PULSE 70; TEMP 36.3; O2SAT 97; BMI 22.8
--- OUTSIDE RECORDS SUMMARY | 2025-03-11 13:29 | XMS_ITS | Encounter Summary ---
Author Organization [facility] Address [address] [place] [address] Phone Care Team Providers Care Breastfeeding Educator Name Role Phone Mitch Borden MD Primary Care Provider Encounter Details Date Type Department Care Team (Late st Contact Info) Description 02/11/2012 Documentation [facility] [address] [place] [address] Family Medicine, Physician [address] [place], [place] [id number] Social History Tobacco Use Types Packs/Day Years [...] on filedocumented in this encounter Care Teams Breastfeeding Educator Relationship Specialty Start Date End Date Mitch Borden MD [address] [place] [address] [place] [id number] PCP - General Pediatrics 03/20/24 06/06/24 documented as of this encounter
--- OUTSIDE RECORDS SUMMARY | 2025-03-11 13:29 | XMS_ITS | Encounter Summary ---
Author Organization [facility] Address [address] [place] [phone] Phone Care Team Providers Care [facility] Nurse Name Role Phone Mitch Borden MD Primary Care Provider [phone] Encounter Details Date Type Department Care Team (Late st Contact Info) Description 06/23/2009 Documentation [facility] [address] [place] [address] Family Medicine, Physician [address] [place], [place] [id number] Social History Tobacco Use Types Packs/Day Years [...] on filedocumented in this encounter Care Teams Correctional Facility Nurse Relationship Specialty Start Date End Date Mitch Borden MD [address] [place] [address] [place] [address] PCP - General Pediatrics 03/20/24 06/06/24 documented as of this encounter
--- OUTSIDE RECORDS SUMMARY | 2025-03-11 13:29 | XMS_ITS | Clinical Summary ---
Author Organization [facility] Address [address] [place] [address] Phone Care Team Providers Care Layout Operator Name Role Phone Unavailable Primary Care Provider Unavailabl e Allergies No known active allergies Medications No known medications Active Problems Problem Noted Date Diagnosed Date COVID-19 vaccination declined 02/03/2021 Psychosocial stressors 08/07/2020 Overview (01/26/2021): 02/01-- here with Mom for preop PE for ganglion (11:30 am) - strong smell of marijuana in room, which I mentioned. 08/07/20 Haven Charlton accountant controller at [facility] office- [phone] calling on an active 51 A (she stated the 51 A was filed on Gigi's 17 year old sister and her two minor children. But [facility] is mandated to investigate on [...] (10/18/2019): Has therapist coming to home from [facility]. On on meds at present. Encounters Date Type Department Care Team Description 02/11/2025 Telephone [facility] [place] [address] [place] [address] Lu Feng MD medical records [...]
--- OUTSIDE RECORDS SUMMARY | 2025-03-11 13:29 | XMS_ITS | Encounter Summary ---
Author Organization [facility] Address [address] [place] [address] Phone Care Team Providers Care Enterprise Business Architect Name Role Phone Mitch Borden MD Primary Care Provider [phone] Encounter Details Date Type Department Care Team (Late st Contact Info) Description 08/08/2014 Documentation [facility] [address] [place] [address] Family Medicine, Physician [address] [place], [place] [id number] Social History Tobacco Use Types Packs/Day Years [...] on filedocumented in this encounter Care Teams Enterprise Business Architect Relationship Specialty Start Date End Date Mitch Bodren MD [address] [place] [address] [place] [address] PCP - General Pediatrics 03/20/24 06/06/24 documented as of this encounter
--- OUTSIDE RECORDS SUMMARY | 2025-03-11 13:29 | XMS_ITS | Encounter Summary ---
Author Organization [facility] Address [address] [place] [address] Phone Care Team Providers Care Balance Recesser Name Role Phone Mitch Borden MD Primary Care Provider [phone] Encounter Details Date Type Department Care Team (Late st Contact Info) Description 06/09/2016 Documentation [facility] [address] [place] [address] Family Medicine, Physician [address] [place], [place] [id number] Social History Tobacco Use Types Packs/Day Years [...] on filedocumented in this encounter Care Teams Balance Recesser Relationship Specialty Start Date End Date Mitch Borden MD [address] [place] [address] [place] [address] PCP - General Pediatrics 03/20/24 06/06/24 documented as of this encounter
--- OUTSIDE RECORDS SUMMARY | 2025-03-11 13:29 | XMS_ITS | Encounter Summary ---
Author Organization [facility] Address [address] [place] [address] Phone Care Team Providers Care Burn Crew Member Name Role Phone Mitch Borden MD Primary Care Provider [phone] Encounter Details Date Type Department Care Team (Late st Contact Info) Description 10/28/2016 Conversion Encounter [facility] [place] [address] [place] [address] Social History Tobacco Use Types Packs/Day Years [...] on filedocumented in this encounter Care Teams Burn Crew Member Relationship Specialty Start Date End Date Mitch Borden MD [address] [place] [address] PCP - General Pediatrics 03/20/24 06/06/24 documented as of this encounter
== END 2025-03-11 12:15 | disposition home or self-care (01) ==
LOC: HO.HMCH 11:30
DX: Z00.00 Encounter for general adult medical examination without abnormal findings (principal); R56.9 Unspecified convulsions; F12.90 Cannabis use, unspecified, uncomplicated; E55.9 Vitamin D deficiency, unspecified; M25.561 Pain in right knee; G89.29 Other chronic pain

== ENCOUNTER → 2025-03-11 11:29 | Outpatient (BNVA) | payer OTHER, SELFPAY | DX: Z00.00 Encounter for general adult medical examination without abnormal findings (principal); R56.9 Unspecified convulsions; F12.90 Cannabis use, unspecified, uncomplicated; E55.9 Vitamin D deficiency, unspecified; M25.561 Pain in right knee; G89.29 Other chronic pain | CPT/HCPCS: 99395 ==